=== PATIENT | male | born 1970 | race American Indian/Alaskan Native ===

== ENCOUNTER 2016-10-02 06:31 | Observation (INO) | payer OTHER ==
[~2016-10-02 06:31] MED LIST: ceFAZolin 2 GM/DEXTROSE 100 ML IV ONE
[2016-10-02] MEDS ORDERED: LIDO/EPI 1% **Not for Epidural 20 ML MDV ONE ×2 (06:33→08:09)
[2016-10-02] MEDS ORDERED: fentaNYL 100 MCG/2 ML INJ ONE ×3 (06:41→10:01)
[2016-10-02] MEDS ORDERED: PROPOFOL 200 MG/20 ML VIAL ONE ×3 (06:42→08:37)
[2016-10-02] MEDS ORDERED: LIDOCAINE 1% 5 ML SDV ONE (06:49)
[2016-10-02] MEDS ORDERED: MIDAZOLAM 2 MG/2 ML VIAL ONE (07:16)
[2016-10-02] MEDS ORDERED: LR 1,000 ML IV ONE (07:23)
[2016-10-02] MEDS ORDERED: ONDANSETRON 4 MG/2 ML VIAL IVP PRN (09:49)
[2016-10-02] MEDS ORDERED: D5W LR 1,000 ML IV SCH (10:00)
[2016-10-02] MEDS ORDERED: HYDROmorphONE/DILAUDID 2 MG/ML INJ ONE (10:26)
[2016-10-02] MEDS: OXYCODONE/APAP 5/325 TAB PO PRN ×2 (12:03→22:55)
--- NOTE | 2016-10-02 13:47 | GOP ---
[f rep st] OPERATIVE REPORT DATE OF OPERATION: 10/02/2016 SURGEON: Chuy Wilkinson MD ANESTHESIA: General. PREOPERATIVE DIAGNOSIS: Nasal septal deviation and inferior turbinate hypertrophy. POSTOPERATIVE DIAGNOSIS: Nasal septal deviation and inferior turbinate hypertrophy. PROCEDURE PERFORMED: 1. Nasal septoplasty. 2. Bilateral submucous resection of the inferior turbinates with outfracturing of the turbinates. FINDINGS: Severe bilateral septal deviation with multiple old fracture lines in the cartilaginous s eptum and near total obstruction of the left side of the nose. He also had very large and boggy inf erior turbinates. SPECIMENS: None. ESTIMATED BLOOD LOSS: 150 mL. INDICATIONS: The patient is a 46-year-old man with sleep apnea syndrome who has had lifelong troubl es with nasal obstruction. He has tried and failed medical therapy to improve his nasal airway. He presents now for surgery in hopes of better allowing him to tolerate his nasal CPAP. He has been t ried on a full-face mask for his sleep apnea but is unable to find one that fits this face properly. DESCRIPTION OF PROCEDURE: Patient was taken the OR and positively identified, placed on monitors, a nd general anesthesia was induced. The table was then turned 90 degrees. His nose was topically de congested with Afrin-soaked pledgets. The septum was infiltrated with 8 cc of 1% lidocaine with 1:1 00,000 epinephrine. A right hemitransfixion was then made. Dissection was carried along the subper ichondrial and subperiosteal plane. There were multiple old fracture lines vertically along the ant erior septum. The bony cartilaginous junction was then bluntly divided. Dissection was carried junaid ng the left side of the perpendicular plate of the ethmoid. The large significant portion of the yennifer ny nasal septum although straight was angled off significantly to the right side and the posterior h samantha of the septum. I therefore took a sharp heavy angle scissor and cut from anterior to posterior back leaving adequate dorsal strut. This released piece of bone was then released inferiorly and po steriorly, removed from the nose to be placed back to the mucosal flaps later. I then released the old fracture lines in the septal cartilage and excised a thickened piece inferiorly and was then abl e to swing the cartilage more towards the midline. The patient's nasal tip support was very poor pr eoperatively. I therefore harvested a straight piece of cartilage from the posterior aspect of the quadrangular cartilage and used this as a caudal strut where it was held in position with a through- and-through PDS sutures. At this point, I then took the piece of bone I removed earlier and placed it back to the mucosal flaps, closed the incision with interrupted 4-0 chromic suture followed by 4- 0 plain gut mattress stitch. The septum was secured at the midline mucoperiosteum of the maxillary crest to hold it at the midline. The inferior turbinates were then both infiltrated with 3 cc of 1% lidocaine with 1:100,000 epinephr ine. A stab incision was made at the anterior edge of the inferior turbinates. Soft tissue was romana vated off the turbinate bone with the [place] elevator. The patient had a rather brisk bleeding at th is point, so I used a shaver to perform the submucosal resection bilaterally. I then infractured an d outfractured both of the inferior turbinates and packed the nose on both sides with Afrin-soaked p ledgets for several minutes. These were then removed, and I placed splints on either jayna e of the nose to keep the free-floating cartilage and bone fragments in line during the initial heal ing. These were secured with a through and through 3-0 nylon stitch. 2 Afrin-soaked pledgets were placed on either side of the nose, and the case was then terminated. T he patient was extubated and taken to the postop care unit in good condition. He tolerated the proc edure well. COMPLICATIONS: None. /[id number]/MODL
[2016-10-02] MEDS: ceFAZolin 2 GM/DEXTROSE 100 ML IV SCH ×2 (14:32→22:48)
[2016-10-02] MEDS ORDERED: DIAZEPAM 5 MG TAB PO PRN (15:26)
[2016-10-02] MEDS ORDERED: KETOROLAC 30 MG/1 ML SDV IVP ONE (15:28)
--- NOTE | 2016-10-02 16:57 | SOAPPROG ---
SOAP Progress Note Assessment/Plan: Assessment: Pt doing well. We will watch him overnight due to the fact he had airway surgery and has a history of sleep apnea. Plan:Likely discharge tomorrow and follow up in a week for removal of nasal splints. Will discharge with percocet and keflex prescriptions. 10/02/16 16:54 Subjective: PT complains of pain. He is alert and eating a popsicle. Objective: Vital Signs Temp Pulse Resp BP Pulse Ox 36.8 C 80 16 134/97 H 93 10/02/16 16:00 10/02/16 16:00 10/02/16 16:00 10/02/16 16:00 10/02/16 16:00 10/01/16 10/02/16 10/03/16 05:59 05:59 05:59 Intake Total 1150 Output Total 150 Balance 1000 PT nasal packs were removed. No bleeding. - Pending Discharge Pending Discharge Within 24 Hours: Yes Pending Discharge Date: 10/03/16 Pending Discharge Time: 11:00 ICD10 Worksheet Patient Problems: Problems Problem Status Onset Sleep apnea in adult Acute - ICD10 Problem Qualifiers (1) Sleep apnea in adult
[2016-10-02 23:27] VITALS: RESP 16
[2016-10-03 04:08] VITALS: O2SAT 94
[2016-10-03] MEDS: KETOROLAC 30 MG/1 ML SDV IVP PRN ×2 (05:00→11:27)
[2016-10-03] MEDS: ceFAZolin 2 GM/DEXTROSE 100 ML IV SCH (05:01)
[2016-10-03 07:41] VITALS: BP 123/75; PULSE 55; TEMP 97.8
--- NOTE | 2016-10-03 10:14 | SOAPPROG ---
SOAP Progress Note Assessment/Plan: Assessment: 46 year old male POD 1 s/p septo/SMRIT. Doing well. Mild oozing. - Discussed afrin BID x 5 days - Use nasal saline hourly x 1 week - Follow-up next week for splint removal 10/03/16 10:12 Subjective: 46 year old male POD 1 s/p septo/SMRIT. Doing well. Mild oozing. Taking tylenol/ibuprofen for pain. Objective: Vital Signs Temp Pulse Resp BP Pulse Ox 36.6 C 55 L 16 123/75 H 94 10/03/16 07:38 10/03/16 07:38 10/03/16 07:38 10/03/16 07:38 10/03/16 07:38 10/02/16 10/03/16 10/04/16 05:59 05:59 05:59 Intake Total 4000 Output Total 4350 600 Balance -350 -600 Mild oozing -- splints in place OP normal ICD10 Worksheet Patient Problems: Problems Problem Status Onset Sleep apnea in adult Acute
== END 2016-10-03 11:39 | disposition home or self-care (01) ==
LOC: F3N 06:31 → F3E 07:56
PROVIDERS: ADMIT Otolaryngology; ATTEND Otolaryngology
DX: J34.2 Deviated nasal septum (principal); J34.3 Hypertrophy of nasal turbinates; G47.30 Sleep apnea, unspecified
CPT/HCPCS: 30520; G0378; J0690; J1170; J1885; J2250; J2704; J3010

== ENCOUNTER → 2017-12-08 | Outpatient (CLI) | payer OTHER | LOC: BMCIMAGING 13:16 | PROVIDERS: ATTEND Family Medicine | DX: M25.532 Pain in left wrist (principal); M79.662 Pain in left lower leg ==